=== PATIENT | male | born 1995 | race Caucasian/White ===

== ENCOUNTER 2017-12-15 01:08 | Emergency (ER) | payer OTHER, MEDICAID ==
[2017-12-15] MEDS: ACETAMINOPHEN 325 MG TAB PO (03:46)
[2017-12-15] MEDS: KETOROLAC 60 MG INJ IM (03:49)
[2017-12-15] MEDS: CLINDAMYCIN 600 MG INJ IM (03:51)
== END 2017-12-15 04:30 | disposition home or self-care (01) ==
LOC: FTE 01:08
DX: J02.9 Acute pharyngitis, unspecified (principal)
CPT/HCPCS: 96372; 99284-25